=== PATIENT | female | born 1990 | race Caucasian/White ===

== ENCOUNTER 2021-06-07 01:53 | Inpatient (IN) | payer BC ==
[~2021-06-07] VITALS: Ht 165.1 cm; Wt 124.1 kg
[2021-06-07] MEDS ORDERED: ONDANSETRON 2MG/ML, 2ML IVPush ONE (02:00)
[2021-06-07] MEDS ORDERED: SODIUM CHLORIDE FLUSH 10ML SYR IVF ONE (02:00)
[2021-06-07] MEDS ORDERED: MORPHINE SULFATE 4 MG/ML, 1ML ONE ×2 (02:30→05:11)
[2021-06-07] MEDS ORDERED: ONDANSETRON 2MG/ML, 2ML ONE ×3 (02:30→10:23)
[2021-06-07] MEDS: MORPHINE SULFATE 4 MG/ML, 1ML IVPush PRN ×2 (02:32→05:16)
[2021-06-07 03:03] LABS: BASOPHILS % (AUTO) 0 % (0-1); EOSINOPHILS % (AUTO) 0 % (1-7); LYMPHOCYTES % (AUTO) 11 % (22-44); MEAN CORPUSCULAR HGB CONC 34.7 g/dL (32.4-35.8); MEAN PLATELET VOLUME 8.3 fL (7.4-10.4); MONOCYTES % (AUTO) 6 % (2-9); NEUTROPHILS % (AUTO) 83 % (42-75); PLATELET COUNT 250 x10^3/uL (130-400); RED BLOOD COUNT 4.48 x10^6/uL (3.82-5.3); RED CELL DISTRIBUTION WIDTH 15.2 % (9.6-15.2)
[2021-06-07 03:14] LABS: ALBUMIN 3.5 g/dL (3.4-5.0); ANION GAP 6 mmol/L (5-15); CALCIUM 7.9 mg/dL (8.5-10.1); CHLORIDE 107 mmol/L (98-107)
[2021-06-07 03:20] LABS: ALANINE AMINOTRANSFERASE 645 U/L (12-78); ALKALINE PHOSPHATASE 132 U/L (45-117); BILIRUBIN,TOTAL 3.4 mg/dL (0.2-1.0); CREATININE 0.55 mg/dL (0.55-1.02); TOTAL PROTEIN 6.6 g/dL (6.4-8.2)
[2021-06-07] MEDS ORDERED: LACTATED RINGERS 1,000 ML IV SCH (03:30)
[2021-06-07] MEDS ORDERED: POLYETHYLENE GLYCOL 17 GM PACKET PO PRN (03:30)
[2021-06-07] MEDS ORDERED: LABETALOL 5MG/ML, 20ML IVPush PRN (03:30)
[2021-06-07] MEDS ORDERED: MELATONIN 5 MG TABLET PO PRN (03:30)
--- NOTE | 2021-06-07 03:40 | NUR ---
LATE ENTRY: BS REPORT TO ZI VANEGAS TO ASSUME CARE OF PT.
[2021-06-07] MEDS: LACTATED RINGERS 1,000 ML IV SCH ×2 (07:15→15:28)
--- NOTE | 2021-06-07 07:40 | NUR ---
OFF THE FLOOR TO MRI
[2021-06-07] MEDS ORDERED: FAMOTIDINE 20 MG/2 ML ONE (08:08)
[2021-06-07] MEDS ORDERED: HYDROmorphone 2 MG/ML, 1ML ONE (08:51)
[2021-06-07] MEDS: FAMOTIDINE 20 MG/2 ML IVPush SCH ×2 (08:54→20:54)
[2021-06-07] MEDS: HYDROmorphone 2 MG/ML, 1ML IVPush PRN ×4 (08:54→23:39)
[2021-06-07] MEDS: ONDANSETRON 2MG/ML, 2ML IVPush PRN ×3 (08:54→18:57)
--- NOTE | 2021-06-07 08:59 | NUR ---
CAILIN RN: PATIENT C/O PAIN 04/26, REQUESTING ADDITIONAL PAIN MEDICATION. SPOKE WITH ANGELICA AND PT MEDICATED FOR PAIN ORDERED. 9AM MEDS GIVEN. NO OTHER NEEDS AT THIS TIME.
--- NOTE | 2021-06-07 10:25 | NUR ---
CRYSTAL MEDICATED PER NOV FOR NAUSEA
--- NOTE | 2021-06-07 10:51 | NUR ---
PT REPORT TO ZI MICHAEL
[2021-06-07 11:32] VITALS: BP 130/78
[2021-06-07 11:35] VITALS: BP 130/78
[2021-06-07 15:57] VITALS: BP 97/63
[2021-06-07] MEDS: AMPICILLIN/SULBACTAM 3 GM in SODIUM CHLORIDE 0.9% 100 ML IV SCH ×2 (17:43→23:04)
[2021-06-07 19:15] VITALS: BP 143/92
[2021-06-08 00:15] VITALS: BP 122/72
[2021-06-08] MEDS: HYDROmorphone 2 MG/ML, 1ML IVPush PRN ×4 (02:53→11:51)
[2021-06-08] MEDS: ONDANSETRON 2MG/ML, 2ML IVPush PRN ×3 (02:54→14:52)
[2021-06-08 05:26] LABS: BASOPHILS % (AUTO) 0 % (0-1); EOSINOPHILS % (AUTO) 1 % (1-7); LYMPHOCYTES % (AUTO) 23 % (22-44); MEAN CORPUSCULAR HEMOGLOBIN 29.5 pg (27.0-34.8); MEAN CORPUSCULAR HGB CONC 34.1 g/dL (32.4-35.8); MEAN PLATELET VOLUME 8.2 fL (7.4-10.4); MONOCYTES % (AUTO) 9 % (2-9); NEUTROPHILS % (AUTO) 68 % (42-75); PLATELET COUNT 199 x10^3/uL (130-400); RED BLOOD COUNT 3.94 x10^6/uL (3.82-5.3); RED CELL DISTRIBUTION WIDTH 15.3 % (9.6-15.2)
[2021-06-08 05:27] LABS: INTERNATIONAL NORMALIZED RATIO 1.14 (0.93-1.1); PROTHROMBIN TIME 12.1 Seconds (9.6-11.5)
[2021-06-08] MEDS: AMPICILLIN/SULBACTAM 3 GM in SODIUM CHLORIDE 0.9% 100 ML IV SCH ×4 (05:28→23:20)
[2021-06-08] MEDS: LACTATED RINGERS 1,000 ML IV SCH ×3 (05:28→19:57)
[2021-06-08 05:29] LABS: ALBUMIN 2.7 g/dL (3.4-5.0)
[2021-06-08 05:34] LABS: ALANINE AMINOTRANSFERASE 406 U/L (12-78); ALKALINE PHOSPHATASE 125 U/L (45-117); BILIRUBIN,TOTAL 0.8 mg/dL (0.2-1.0); CREATININE 0.37 mg/dL (0.55-1.02); TOTAL PROTEIN 5.7 g/dL (6.4-8.2); TRIGLYCERIDES 105 mg/dL (50-200)
[2021-06-08 05:36] LABS: ANION GAP 5 mmol/L (5-15); CHLORIDE 108 mmol/L (98-107)
[2021-06-08 08:05] VITALS: BP 100/58
[2021-06-08] MEDS: FAMOTIDINE 20 MG/2 ML IVPush SCH (09:21)
[2021-06-08 14:22] VITALS: BP 101/56
[2021-06-08] MEDS: ACETAMINOPHEN 325 MG TABLET PO PRN ×2 (14:58→19:57)
[2021-06-08] MEDS: OXYcodone IR 5MG TABLET PO PRN (16:58)
[2021-06-08 19:41] VITALS: BP 116/67
[2021-06-08] MEDS: FAMOTIDINE 20 MG TABLET PO SCH (20:38)
[2021-06-09] MEDS: ACETAMINOPHEN 325 MG TABLET PO PRN ×3 (00:04→08:09)
[2021-06-09 04:00] VITALS: BP 122/78
[2021-06-09] MEDS: OXYcodone IR 5MG TABLET PO PRN (04:00)
[2021-06-09] MEDS: LACTATED RINGERS 1,000 ML IV SCH ×3 (04:00→21:29)
[2021-06-09] MEDS: AMPICILLIN/SULBACTAM 3 GM in SODIUM CHLORIDE 0.9% 100 ML IV SCH ×3 (05:42→18:30)
[2021-06-09 06:48] LABS: BASOPHILS % (AUTO) 1 % (0-1); EOSINOPHILS % (AUTO) 1 % (1-7); LYMPHOCYTES % (AUTO) 22 % (22-44); MEAN CORPUSCULAR HEMOGLOBIN 30.2 pg (27.0-34.8); MEAN CORPUSCULAR HGB CONC 34.7 g/dL (32.4-35.8); MEAN PLATELET VOLUME 9.1 fL (7.4-10.4); MONOCYTES % (AUTO) 7 % (2-9); NEUTROPHILS % (AUTO) 69 % (42-75); PLATELET COUNT 178 x10^3/uL (130-400); RED BLOOD COUNT 3.86 x10^6/uL (3.82-5.3); RED CELL DISTRIBUTION WIDTH 14.9 % (9.6-15.2)
[2021-06-09 07:05] LABS: CALCIUM 7.9 mg/dL (8.5-10.1); CHLORIDE 106 mmol/L (98-107)
[2021-06-09 07:11] LABS: ALANINE AMINOTRANSFERASE 287 U/L (12-78); ALBUMIN 2.8 g/dL (3.4-5.0); ALKALINE PHOSPHATASE 106 U/L (45-117); ANION GAP 8 mmol/L (5-15); BILIRUBIN,TOTAL 0.6 mg/dL (0.2-1.0); CREATININE 0.35 mg/dL (0.55-1.02); TOTAL PROTEIN 5.7 g/dL (6.4-8.2)
[2021-06-09] MEDS: FAMOTIDINE 20 MG TABLET PO SCH ×2 (08:10→19:39)
[2021-06-09 08:11] VITALS: BP 124/81
[2021-06-09 08:36] LABS: INTERNATIONAL NORMALIZED RATIO 1.05 (0.93-1.1); PROTHROMBIN TIME 11.2 Seconds (9.6-11.5)
[2021-06-09 11:06] LABS: HCG UR SG 1.021 (1.003-1.030)
[2021-06-09 13:50] VITALS: BP 124/94
[2021-06-09] MEDS ORDERED: NEOSTIGMINE 1 MG/ML, 10ML ONE (13:53)
[2021-06-09] MEDS ORDERED: ROCURONIUM 10MG/ML,5ML ONE (13:53)
[2021-06-09] MEDS ORDERED: CEFAZOLIN 1,000 MG ONE (13:53)
[2021-06-09] MEDS ORDERED: SUCCINYLCHOLINE 20 MG/ML, 10ML ONE (13:53)
[2021-06-09] MEDS ORDERED: ONDANSETRON 2MG/ML, 2ML ONE (13:53)
[2021-06-09] MEDS ORDERED: GLYCOPYRROLATE 0.2MG/1ML, 5ML ONE (13:53)
[2021-06-09] MEDS ORDERED: FENTANYL PF 100 MCG/2ML ONE ×3 (13:53→16:42)
[2021-06-09] MEDS ORDERED: DEXAMETHASONE 4 MG/ML, 1ML ONE (13:53)
[2021-06-09] MEDS ORDERED: PROPOFOL 10 MG/ML, 20ML ONE (13:53)
[2021-06-09] MEDS ORDERED: MIDAZOLAM 1 MG/ML, 2ML ONE (13:53)
[2021-06-09] MEDS ORDERED: CHLORHEXIDINE 15 ML UDC ONE (14:44)
[2021-06-09] MEDS ORDERED: EPINEPHRINE 1 MG/ML, 1ML ONE (14:54)
[2021-06-09] MEDS ORDERED: BUPIVACAINE/PF 0.5% ONE (14:54)
[2021-06-09] MEDS ORDERED: OMNIPAQUE 350 MG/ML, 50 ML BOTTLE ONE (15:03)
[2021-06-09] MEDS ORDERED: HYDROcodone/APAP 7.5-325MG/15ML UDC PO PRN (16:30)
[2021-06-09] MEDS ORDERED: LORazepam 2 MG/ML, 1ML IVPush PRN (16:30)
[2021-06-09] MEDS ORDERED: ONDANSETRON 2MG/ML, 2ML IVPush PRN (16:30)
[2021-06-09] MEDS ORDERED: OXYcodone 5 MG/5 ML ORAL.SOL UDC PO PRN (16:30)
[2021-06-09] MEDS ORDERED: KETOROLAC 30 MG/1 ML IVPush PRN (16:30)
[2021-06-09] MEDS ORDERED: PROMETHAZINE 25 MG/ML, 1ML IVPush PRN (16:30)
[2021-06-09] MEDS ORDERED: MEPERIDINE/PF 25MG/0.5ML IVPush PRN (16:30)
[2021-06-09] MEDS: FENTANYL PF 100 MCG/2ML IV PRN ×4 (16:38→16:53)
[2021-06-09] MEDS ORDERED: OXYcodone 5 MG/5 ML ORAL.SOL UDC ONE (16:43)
[2021-06-09] MEDS ORDERED: HYDROmorphone 2 MG/ML, 1ML ONE (17:02)
[2021-06-09] MEDS: HYDROmorphone 1 MG/ML, 1ML INJ IVPush PRN ×4 (17:04→17:27)
[2021-06-09] MEDS ORDERED: ONDANSETRON 2MG/ML, 2ML IV PRN (18:30)
[2021-06-09] MEDS ORDERED: HYDROmorphone 2 MG/ML, 1ML IVPush PRN (18:30)
[2021-06-09] MEDS: POTASSIUM CHLORIDE 20 MEQ in LACTATED RINGERS 1,000 ML IV SCH (19:39)
[2021-06-09] MEDS: OXYcodone/APAP 5/325MG TABLET PO PRN (19:39)
[2021-06-09 19:45] VITALS: BP 138/88
[2021-06-09] MEDS: morphine SULFATE 10 MG/ML, 1ML IV PRN (20:33)
[2021-06-10] VITALS: BP 127/68
[2021-06-10] MEDS: AMPICILLIN/SULBACTAM 3 GM in SODIUM CHLORIDE 0.9% 100 ML IV SCH ×3 (00:32→12:56)
[2021-06-10] MEDS: CEFOTETAN PMX 1GM/50ML 50 ML IVPB SCH ×2 (02:09→13:43)
[2021-06-10] MEDS: OXYcodone/APAP 5/325MG TABLET PO PRN ×3 (03:19→13:08)
[2021-06-10 03:22] VITALS: BP 122/77
[2021-06-10] MEDS: LACTATED RINGERS 1,000 ML IV SCH (04:24)
[2021-06-10] MEDS: morphine SULFATE 10 MG/ML, 1ML IV PRN ×4 (05:02→14:54)
[2021-06-10] MEDS: POTASSIUM CHLORIDE 20 MEQ in LACTATED RINGERS 1,000 ML IV SCH (05:35)
[2021-06-10 05:40] LABS: BASOPHILS % (AUTO) 0 % (0-1); EOSINOPHILS % (AUTO) 0 % (1-7); LYMPHOCYTES % (AUTO) 12 % (22-44); MEAN CORPUSCULAR HEMOGLOBIN 29.9 pg (27.0-34.8); MEAN CORPUSCULAR HGB CONC 34.6 g/dL (32.4-35.8); MEAN PLATELET VOLUME 7.8 fL (7.4-10.4); MONOCYTES % (AUTO) 7 % (2-9); NEUTROPHILS % (AUTO) 81 % (42-75); PLATELET COUNT 225 x10^3/uL (130-400); RED BLOOD COUNT 3.73 x10^6/uL (3.82-5.3); RED CELL DISTRIBUTION WIDTH 14.5 % (9.6-15.2)
[2021-06-10 05:52] LABS: ALBUMIN 2.6 g/dL (3.4-5.0); ANION GAP 5 mmol/L (5-15); CALCIUM 7.9 mg/dL (8.5-10.1); CHLORIDE 107 mmol/L (98-107)
[2021-06-10 05:55] LABS: ALANINE AMINOTRANSFERASE 206 U/L (12-78); ALKALINE PHOSPHATASE 90 U/L (45-117); BILIRUBIN,TOTAL 0.4 mg/dL (0.2-1.0); CREATININE 0.54 mg/dL (0.55-1.02); TOTAL PROTEIN 5.7 g/dL (6.4-8.2)
[2021-06-10] MEDS ORDERED: ENOXAPARIN 40 MG/0.4 ML SQ SCH (06:00)
[2021-06-10 07:01] VITALS: BP 113/70
[2021-06-10] MEDS: FAMOTIDINE 20 MG TABLET PO SCH (08:25)
[2021-06-10 12:12] VITALS: BP 132/79
== END 2021-06-10 17:57 | disposition left against medical advice (07) | DRG 418 ==
LOC: ED 02:09 → EDIP 03:07 → 3WST 11:15 → 3N 06-10 05:02
PROVIDERS: ADMIT Internal Medicine; ATTEND Internal Medicine
PROC: 0FT44ZZ Resection of Gallbladder, Percutaneous Endoscopic Approach (ICD-10-PCS; principal; 2021-06-07)
PROC: BF111ZZ Fluoroscopy of Biliary and Pancreatic Ducts using Low Osmolar Contrast (ICD-10-PCS; 2021-06-07)
DX: K85.10 Biliary acute pancreatitis without necrosis or infection (principal); K80.00 Calculus of gallbladder with acute cholecystitis without obstruction; Z68.41 Body mass index [BMI] 40.0-44.9, adult; S36.119A Unspecified injury of liver, initial encounter; E46 Unspecified protein-calorie malnutrition; E66.01 Morbid (severe) obesity due to excess calories; Z20.822 Contact with and (suspected) exposure to COVID-19; R74.8 Abnormal levels of other serum enzymes; F17.210 Nicotine dependence, cigarettes, uncomplicated; X58.XXXA Exposure to other specified factors, initial encounter; N83.201 Unspecified ovarian cyst, right side; Z86.32 Personal history of gestational diabetes; Z71.51 Drug abuse counseling and surveillance of drug abuser; Y93.89 Activity, other specified; Y92.89 Other specified places as the place of occurrence of the external cause; Y99.8 Other external cause status
CPT/HCPCS: 36415; 74300; 96374; 96375; 96376; 99285; S0020; 74181; 80053; 81025; 82150; 83690; 83735; 84100; 84478; 84703; 85025; 85610; 85730; 87635; 88304; G0378; J0171; J0295; J0690; J1100; J1170; J1650; J2250; J2405; J2704; J2710; J3010; J3480; Q9967; C1760; J0330; J2270; J7120